=== PATIENT | male | born 1955 | race Caucasian/White ===

== ENCOUNTER → 2016-06-03 | Outpatient (CLI) | payer MEDICARE, MEDICAID ==
[~2016-06-03] MED LIST: ASPI-518 PO; ATOR20TA PO; CLON0.1T PO; GLIP5TAB12 PO; LISI10TA5 PO; METO-296 PO
== END | disposition home or self-care (01) ==
LOC: MRI 08:39
PROVIDERS: ATTEND Internal Medicine Nephrology
DX: M48.02 Spinal stenosis, cervical region (principal); H91.90 Unspecified hearing loss, unspecified ear; M50.21 Other cervical disc displacement, high cervical region
CPT/HCPCS: 70551; 72141

== ENCOUNTER → 2019-03-21 | Outpatient (CLI) | payer MEDICARE, MEDICAID ==
[~2019-03-21] MED LIST changes: -METO-296 PO; +METO-396 PO
== END | disposition home or self-care (01) ==
LOC: CARD 09:48
PROVIDERS: ATTEND Internal Medicine Nephrology
DX: R00.1 Bradycardia, unspecified (principal); I45.10 Unspecified right bundle-branch block; I10 Essential (primary) hypertension
CPT/HCPCS: 93005